=== PATIENT | female | born 1975 | race Hispanic/Latino ===

== ENCOUNTER 2017-12-09 15:47 | Emergency (ER) | payer SELFPAY ==
[~2017-12-09] VITALS: Ht 167.6 cm; Wt 77.1 kg
[2017-12-09] MEDS ORDERED: KETOROLAC TROMETHAMINE 60 MG/2 ML VIAL IM ONE (17:15)
== END 2017-12-09 17:55 | disposition home or self-care (01) ==
LOC: FSED 15:47
DX: M25.572 Pain in left ankle and joints of left foot (principal); M25.571 Pain in right ankle and joints of right foot; M25.552 Pain in left hip; M25.551 Pain in right hip; M25.532 Pain in left wrist; M25.531 Pain in right wrist; R03.0 Elevated blood-pressure reading, without diagnosis of hypertension
CPT/HCPCS: 99283; J1885

== ENCOUNTER 2023-01-06 20:35 | Emergency (ER) | payer SELFPAY ==
[~2023-01-06] VITALS: Ht 167.6 cm; Wt 77.1 kg
[2023-01-06] MEDS ORDERED: ONDANSETRON HCL INJ 2MG/ML 2ML 2 MG/ML VIAL IV STA (21:47)
[2023-01-06] MEDS ORDERED: KETOROLAC TROMETHAMINE 30 MG/ML VIAL IV STA (21:47)
[2023-01-06 21:50] LABS: CLARITY,URINE CLEAR (CLEAR); COLOR,URINE YELLOW (YELLOW); KETONES,URINE NEGATIVE (NEGATIVE); LEUKOCYTE ESTERASE ,URINE NEGATIVE (NEGATIVE); NITRITE,URINE NEGATIVE (NEGATIVE); PROTEIN,URINE DIPSTICK NEGATIVE (NEGATIVE); URINE UROBILINOGEN 0.2 mg/dL (0.2 - 1)
[2023-01-06] MEDS ORDERED: SODIUM CHLORIDE FLUSH 10 ML SYR IV PRN (22:00)
[2023-01-06 22:38] LABS: BASOPHILS % 0.4 % (0.0-1.0); EOSINOPHILS # (AUTO) 0.3 (0.0-0.4); EOSINOPHILS % 3.3 % (0.0-6.0); HEMATOCRIT 42.6 % (34.2-44.1); HEMOGLOBIN 14.7 g/dL (12.0-16.0); LYMPHOCYTES # (AUTO) 2.7 (1.0-3.2); LYMPHOCYTES % 35.2 % (18.0-39.1); MEAN CORPUSCULAR HEMOGLOBIN 31.3 pg (28-32); MEAN CORPUSCULAR HGB CONC 34.5 g/dL (31-35); MEAN CORPUSCULAR VOLUME 90.6 fL (81-99); MONOCYTES # (AUTO) 0.6 (0.2-0.8); MONOCYTES % 7.6 % (4.4-11.3); NEUTROPHILS # (AUTO) 4.1 (2.1-6.9); NEUTROPHILS % 53.1 % (38.7-80.0); PLATELET COUNT 273 x10e3/uL (140-360); RED CELL DISTRIBUTION WIDTH 12.3 % (11.7-14.4)
[2023-01-06 22:58] LABS: ALBUMIN 4.1 g/dL (3.5-5.0); ANION GAP 17.2 mmol/L (8-16); CALCIUM 9.5 mg/dL (8.4-10.2); CREATININE, SERUM 0.68 mg/dL (0.57-1.11); POTASSIUM 4.2 mmol/L (3.5-5.1)
[2023-01-06] MEDS ORDERED: METHOCARBAMOL 750 MG TAB ONE (23:34)
[2023-01-06] MEDS ORDERED: METHOCARBAMOL500 MG PO (23:42)
[2023-01-06] MEDS ORDERED: NAPROSYN500 MG PO (23:42)
[2023-01-06] MEDS ORDERED: METHOCARBAMOL 750 MG TAB PO ONE (23:45)
== END 2023-01-06 23:46 | disposition home or self-care (01) ==
LOC: ER 20:40
DX: S39.012A Strain of muscle, fascia and tendon of lower back, initial encounter (principal)
CPT/HCPCS: 36415; 74176; 80053; 81001; 81025; 85025; 87086; 99284; J1885; J2405

== ENCOUNTER 2024-08-28 11:50 | Emergency (ER) | payer SELFPAY ==
[~2024-08-28] VITALS: Ht 167.6 cm; Wt 76.7 kg
[~2024-08-28 11:50] MED LIST: ANTIVERT25 M1 PO; METHOCARBAMOL500 MG PO; NAPROSYN500 MG PO; ONDANSETRON ODT4 MG SL; PANTOPRAZOLE SO40 MG PO
[2024-08-28] MEDS: ONDANSETRON HCL INJ 2MG/ML 2ML 2 MG/ML VIAL IV STA (13:15)
[2024-08-28] MEDS: Morphine 4mg INJECTION 4 MG/ML INJ IV ONE (13:15)
[2024-08-28] MEDS ORDERED: FLOMAX0.4 MG PO (13:27)
[2024-08-28] MEDS ORDERED: ONDANSETRON ODT4 MG PO (13:27)
[2024-08-28] MEDS ORDERED: CEPHALEXIN500 MG PO (13:29)
[2024-08-28] MEDS ORDERED: CEFTRIAXONE 1 GM VIAL IV ONE (13:30)
[2024-08-28] MEDS: KETOROLAC TROMETHAMINE 30 MG/ML VIAL IV STA (13:58)
[2024-08-28] MEDS: SODIUM CHLORIDE 0.9% 1000ML 1,000 ML IV SCH (13:59)
[2024-08-28 15:45] VITALS: PULSE 70; RESP 14; TEMP 98
[2024-08-28 15:46] VITALS: BP 112/68; PULSE 70; RESP 15; TEMP 98; O2SAT 98
== END 2024-08-28 15:53 | disposition home or self-care (01) ==
LOC: FSED 12:00
DX: R10.12 Left upper quadrant pain (principal); R10.32 Left lower quadrant pain; N30.91 Cystitis, unspecified with hematuria; E86.0 Dehydration; N20.1 Calculus of ureter; K57.90 Diverticulosis of intestine, part unspecified, without perforation or abscess without bleeding; K76.89 Other specified diseases of liver
CPT/HCPCS: 74176; 80048; 80076; 81025; 85025; 87400; 96374; 96375; 99284; J0696; J1885; J2270; J2405; J7030